=== PATIENT | female | born 1990 | race Caucasian/White ===

== ENCOUNTER 2021-08-29 10:39 | Emergency (ER) | payer OTHER ==
[~2021-08-29] VITALS: Ht 177.8 cm; Wt 88.9 kg
[2021-08-29 10:46] VITALS: BP 98/71
--- NOTE | 2021-08-29 10:55 | NUR ---
Patient ambulated to bed 10 with steady/even gait.
--- NOTE | 2021-08-29 11:15 | NUR ---
31 y/o F c/o right lower arm pain x 2 weeks. Patient states pain to right forearm began while at home, states 5/10, poking/constant, non-radiating pain aggravated by movement. No tenderness noted to right forearm. Pt also noted small lesions/bumps on affected area which have been present for 3 years. pt had ultrasound of right arm done 3 years ago which revealed blood clots. no meds taken. Bed locked in lowest position, side rails x 1. pmh: blood clot, right lower arm meds: none nka
--- NOTE | 2021-08-29 11:37 | NUR ---
US tech at bedside
[2021-08-29] MEDS ORDERED: NAPR-1704 PO (12:48)
[2021-08-29 13:02] VITALS: BP 125/77
--- NOTE | 2021-08-29 13:04 | NUR ---
Patient discharged with v/s stable. Written and verbal after care instructions given and explained. Patient verbalized understanding. Ambulatory with steady gait. All questions addressed prior to discharge. Advised to follow up with PMD.
== END 2021-08-29 13:04 | disposition home or self-care (01) ==
LOC: MED 10:39
DX: M79.601 Pain in right arm (principal); M79.631 Pain in right forearm; Z79.1 Long term (current) use of non-steroidal anti-inflammatories (NSAID)
CPT/HCPCS: 93971; 99284; Q0092